=== PATIENT | female | born 1955 | race Caucasian/White ===

== ENCOUNTER 2016-06-19 12:36 | Inpatient (IN) | payer OTHER ==
[~2016-06-19] VITALS: Ht 167.6 cm; Wt 84.6 kg
[~2016-06-19 12:36] MED LIST: ALBU17I; ALEN70 PO; FLOVENT110 MCG/A; LOVA10TA PO
[2016-06-19 12:43] VITALS: BP 113/70; PULSE 70; RESP 17; TEMP 97.7; O2SAT 100
--- NOTE | 2016-06-19 12:57 | PD ---
HPI Chief Complaint: Fall Time Seen by Provider: 12:57 Travel History International Travel<30 days: No Contact w/Intl Traveler<30days: No Traveled to known affect area: No History of Present Illness HPI 61-year-old female with PMH of sciatica presents to the ED by EMS for evaluation after falling from a horse. Patient states that the horse lost his footing then began to perez and she was thrown, falling and landing on her right hip and buttocks. She endorses wearing a helmet. She states that she hit her head but denies losing consciousness. She's not been ambulatory since the accident. On presentation she complains of pain in the right buttock, radiating down the back of the right leg. She endorses "spasm." She denies numbness, tingling, weakness, limitations to range of motion of the leg, incontinence or saddle anesthesia. PFSH Past Medical History Asthma: Yes Cancer: Yes (NOSE TIP SKIN) High Cholesterol: Yes Diabetes: No Diminished Hearing: No Glaucoma: No Hepatitis: No Hiatal Hernia: No Hypertension: No Thyroid Disease: Yes ?: Not Menopausal: Yes : 4 Para: 3 : 1 Past Surgical History Gynecologic Surgery: Yes (LEEP) Social History Alcohol Use: Yes (2/DAY) Tobacco Use: No Allergies-Medications (Allergen,Severity, Reaction): Coded Allergies: No Known Allergies (Verified , 06/19/16) Reported Meds & Prescriptions Reported Meds & Active Scripts Active Reported Fosamax (Alendronate Sodium) 70 Mg Tab 70 Mg PO WEEKLY Proventil Mdi (Albuterol Sulfate) 17 Gm Aero Flovent HFA (Fluticasone Propionate) 110 Mcg Aero Mevacor (Lovastatin) 10 Mg Tab 20 Mg PO HS Review of Systems Except as stated in HPI: all other systems reviewed are Neg Physical Exam Narrative GENERAL: Well-nourished, well-developed white female in no acute distress. Lying on the stretcher with her right hand under her buttocks. SKIN: Warm and dry. Thorough evaluation reveals no edema, ecchymosis, abrasion , or laceration of the skin. HEAD: Normocephalic. Atraumatic. No raccoon eyes or casillas sign. No tenderness to palpation of the skull. No bony step-offs. No malocclusion of the teeth. EYES: No scleral icterus. No injection or drainage. PERRLA. EOMI. ENT: Pearly enriquez tympanic membrane is bilaterally. Nasal mucosa is moist. Oropharynx without erythema, edema or exudate. NECK: Supple, trachea midline. No JVD or lymphadenopathy. No midline tenderness to palpation. Patient retains full, active, painless range of motion of the neck. CARDIOVASCULAR: Regular rate and rhythm without murmurs, gallops, or rubs. 2+ DP and radial pulses bilaterally. RESPIRATORY: Breath sounds clear and equal bilaterally. No accessory muscle use. GASTROINTESTINAL: Abdomen soft, non-tender, nondistended. + Bowel sounds MUSCULOSKELETAL: No cyanosis, or edema. No TTP of the right buttock, groin or thigh. Patient is able to flex the hip, though this elicits pain. No other tenderness to palpation or limitations to range of motion of the joints of the upper and lower extremities bilaterally. NEUROLOGICAL: Awake and alert. Cranial nerves II through XII intact. Motor and sensory grossly within normal limits. Mildly diminished strength of flexion of the right hip. All other muscle strength 5/5. Normal speech. BACK: Nontender without obvious deformity. No CVA tenderness. No midline tenderness. Data Data Last Documented VS Vital Signs Date Time Temp Pulse Resp B/P Pulse Ox O2 Delivery O2 Flow Rate FiO2 06/19/16 14:54 64 18 125/66 97 Room Air 06/19/16 12:[address] Lumb Spine W/O Contrast (06/19/16 13:07) Morphine Inj (Morphine Inj) (06/19/16 13:15) Orphenadrine Inj (Norflex Inj) (06/19/16 13:30) Ct Pelvis W/O Iv Contrast (06/19/16 ) Complete Blood Count With Diff (06/19/16 13:54) Comprehensive Metabolic Panel (06/19/16 13:54) Urinalysis - C+S If Indicated (06/19/16 13:54) Urinary Catheter Insert/Apply (06/19/16 13:54) ^ Insert Iv (06/19/16 13:54) Sodium Chlor 0.9% 1000 Ml Inj (Ns 1000 M (06/19/16 14:00) Femur, One View (06/19/16 ) ^ Insert Iv (06/19/16 14:13) Ct Brain W/O Iv Contrast(Rout) (06/19/16 14:48) Ct Cerv Spine W/O Contrast (06/19/16 14:48) Type And Screen (06/19/16 14:48) Admit Order (Ed Use Only) (06/19/16 14:52) Labs Laboratory Tests Test 06/19/16 14:20 White Blood Count 19.3 TH/MM3 Red Blood Count 4.26 MIL/MM3 Hemoglobin 13.4 GM/DL Hematocrit 39.6 % Mean Corpuscular Volume 92.9 FL Mean Corpuscular Hemoglobin 31.5 PG Mean Corpuscular Hemoglobin 33.9 % Concent Red Cell Distribution Width 13.0 % Platelet Count 278 TH/MM3 Mean Platelet Volume 7.7 FL Neutrophils (%) (Auto) 89.5 % Lymphocytes (%) (Auto) 4.6 % Monocytes (%) (Auto) 5.3 % Eosinophils (%) (Auto) 0.3 % Basophils (%) (Auto) 0.3 % Neutrophils # (Auto) 17.1 TH/MM3 Lymphocytes # (Auto) 0.9 TH/MM3 Monocytes # (Auto) 1.0 TH/MM3 Eosinophils # (Auto) 0.1 TH/MM3 Basophils # (Auto) 0.1 TH/MM3 CBC Comment DIFF FINAL Differential Comment Sodium Level 141 MEQ/L Potassium Level 3.3 MEQ/L Chloride Level 106 MEQ/L Carbon Dioxide Level 25.0 MEQ/L Anion Gap 10 MEQ/L Blood Urea Nitrogen 18 MG/DL Creatinine 0.81 MG/DL Estimat Glomerular Filtration 72 ML/MIN Rate Random Glucose 105 MG/DL Calcium Level 8.9 MG/DL Total Bilirubin 0.4 MG/DL Aspartate Amino Transf 31 U/L (AST/SGOT) Alanine Aminotransferase 38 U/L (ALT/SGPT) Alkaline Phosphatase 68 U/L Total Protein 6.8 GM/DL Albumin 3.4 GM/DL [facility] Medical Decision Making Medical Screen Exam Complete: Yes Emergency Medical Condition: Yes Differential Diagnosis Musculoskeletal pain versus fracture versus dislocation versus acute on chronic back pain versus other Narrative Course 61-year-old female with PMH of sciatica presents to the ED by EMS for evaluation after falling from a horse. Patient states that the horse lost his footing then began to perez and she was thrown, falling and landing on her right hip and buttocks. She endorses wearing a helmet. She states that she hit her head but denies losing consciousness. She has not been ambulatory since the accident. On presentation she complains of pain in the right buttock, radiating down the back of the right leg. She endorses "spasm." She denies numbness, tingling, weakness, limitations to range of motion of the leg, incontinence or saddle anesthesia. Vitals reviewed. Physical exam reveals a white female in no acute distress. She is alert, awake, lying flat on her back with her disabled up under her right buttocks. There is no tenderness to palpation of the right buttock, groin or thigh. Patient is able to flex the hip that is also pain. There is mildly diminished strength in flexion of the right hip. All other muscle strength 5/5. Patient was administered IM Norflex and morphine. CT of the pelvis reveals a right sacral fracture S1 through S3, bilateral inferior pubic rami fractures, right superior pubic rami fracture, suspected left superior pubic rami fracture, soft tissue hematoma in the right posterior lateral lower pelvis. CT of the lumbar spine reveals mild disc bulge at L2/L3 and L4/L5. Mild impression on the anterior left thecal sac at L4-L5. CT of the head and neck are pending. CBC, CMP, UA, type and screen ordered and pending. I spoke with Dr. Sinha, on-call trauma surgeon, who recommends transfer to [facility]. Patient will be admitted to Dr. Sinha, please see his notes for disposition. Diagnosis Primary Impression: Multiple pelvic fractures Qualified Code: S32.811A - Multiple closed fractures of pelvis with unstable disruption of pelvic [place], initial encounter Additional Impression: Sacral fracture, closed Qualified Code: S32.10XA - Closed fracture of sacrum, unspecified portion of sacrum, initial encounter Nadira Esquivel Jun 19, 2016 12:57
[2016-06-19] MEDS ORDERED: MORPHINE SULFATE 4 MG/ML INJ IM ONE (13:15)
[2016-06-19] MEDS ORDERED: ORPHENADRINE INJ 60 MG/2 ML AMP IM ONE (13:30)
[2016-06-19] MEDS ORDERED: SODIUM CHLOR 0.9% 1000 ML INJ 1,000 ML IV ONE (14:00)
--- NOTE | 2016-06-19 14:26 | RADHPO ---
EXAM DATE/TIME: 06/19/2016 13:37 [facility] COMPARISON: No previous studies available for comparison. INDICATIONS : Fell form horse, lower back pain. RADIATION DOSE: 40.16 CTDIvol (mGy) MEDICAL HISTORY : None Asthma SURGICAL HISTORY : None. ENCOUNTER: Initial ACUITY: 1 day PAIN SCALE: 5/10 LOCATION: Buttock TECHNIQUE: Volumetric scanning of the lumbar spine was performed. Multiplanar reconstructions in the sagittal, coronal and oblique axial planes were performed. Using automated exposure control and adjustment of the mA and/or kV according to patient size, radiation dose was kept as low as reasonab ly achievable to obtain optimal diagnostic quality images. FINDINGS: VERTEBRAE: There is fracturing of the right superolateral and anterior sacrum. The lumbar verteb ral bodies appear intact. ALIGNMENT: No evidence of subluxation. T12-L1: The thecal sac has a normal diameter. No evidence of disc bulge or protrusion. The neural foramina are patent bilaterally. L1-L2: The thecal sac has a normal diameter. No evidence of disc bulge or protrusion. The neural foramina are patent bilaterally. L2-L3: There is mild diffuse disc bulge. The neural foramina are normal. The facet joints are in tact. L3-L4: There is mild diffuse disc bulge. The neural foramina are normal. There is mild facet hyp ertrophy. L4-L5: There is mild asymmetric disc bulge being worse on the left. There is mild to moderate fac et hypertrophy being worse on the left. These changes cause a mild impression on the thecal sac. Th e neural foramina are normal. L5-S1: The disc space is narrowed. A significant impression on the thecal sac is not seen. The n eural foramina are normal. There is mild facet hypertrophy. CONCLUSION: 1. Acute fracturing of the anterior right lateral aspect of the sacrum. 2. Mild disc bulges at the mid and lower lumbar spine at the L2-L3 through L4-L5 levels. There is a mild impression on the anterior left side of the thecal sac at the L4-L5 level. Marcus Gauthier MD on June 19, 2016 at 14:04 Board Certified Radiologist. This report was verified electronically.
[2016-06-19 14:32] LABS: AUTOMATED NEUTROPHIL # 17.1 TH/MM3 (1.8-7.7); BASOPHIL # 0.1 TH/MM3 (0-0.2); BASOPHIL % 0.3 % (0.0-2.0); EOSINOPHIL # 0.1 TH/MM3 (0-0.4); EOSINOPHIL % 0.3 % (0.0-4.0); HEMATOCRIT 39.6 % (35.0-46.0); LYMPH % 4.6 % (9.0-44.0); LYMPHOCYTE # 0.9 TH/MM3 (1.0-4.8); MEAN CELL VOLUME 92.9 FL (80.0-100.0); MEAN CORPUSCULAR HEMOGLOBIN 31.5 PG (27.0-34.0); MEAN CORPUSCULAR HGB CONC 33.9 % (32.0-36.0); MONO % 5.3 % (0.0-8.0); NEUT % 89.5 % (16.0-70.0); PLATELET COUNT 278 TH/MM3 (150-450); RED BLOOD COUNT 4.26 MIL/MM3 (4.00-5.30); WHITE BLOOD COUNT 19.3 TH/MM3 (4.0-11.0)
--- NOTE | 2016-06-19 14:34 | RADHPO ---
EXAM DATE/TIME: 06/19/2016 14:01 [facility] COMPARISON: No previous studies available for comparison. INDICATIONS : Right leg pain and spasms post fall from a horse. MEDICAL HISTORY : None. SURGICAL HISTORY : None. ENCOUNTER: Initial ACUITY: 1 day PAIN SCORE: 7/10 LOCATION: Right femur. FINDINGS: One view examination of the right femur demonstrates no evidence of fracture or dislocation. There i s some hypertrophic change adjacent to the greater trochanter. Bony mineralization is normal. The so ft tissue structures are intact. CONCLUSION: No acute disease. Marcus Gauthier MD on June 19, 2016 at 14:32 Board Certified Radiologist. This report was verified electronically.
--- NOTE | 2016-06-19 14:36 | RADHPO ---
EXAM DATE/TIME: 06/19/2016 13:37 [facility] COMPARISON: No previous studies available for comparison. INDICATIONS : Fell from horse, hip pain. ORAL CONTRAST: No oral contrast ingested. RADIATION DOSE: 30.90 CTDIvol (mGy) MEDICAL HISTORY : Asthma SURGICAL HISTORY : None. ENCOUNTER: Initial ACUITY: 1 day PAIN SCALE: 5/10 LOCATION: Pelvis TECHNIQUE: Volumetric scanning of the pelvis was performed. Using automated exposure control and adjustment of the mA and/or kV according to patient size, radiation dose was kept as low as reasonably achievable t o obtain optimal diagnostic quality images. FINDINGS: There is fracturing of the right sacrum. The anterior component appears to involve the S1 and S2 lev els. There is a more posterior component involving the S3 level. There is fracturing of the right s uperior pubic rami and inferior pubic rami bilaterally. The hip joints are normally aligned. There is a hematoma seen at the posterior right lateral aspect of the pelvis. The pelvic structures appear otherwise intact. There is some degenerative change in the lower lumbar spine. CONCLUSION: 1. Fracturing of the right side of the sacrum involving the S1 through S3 levels. 2. Fracturing of the inferior pubic rami bilaterally and the right superior pubic rami. A superior left pubic rami fracture is not clearly seen. However, an occult fracture involving this structure n eeds to be at least suspected, given the other fractures. 3. Soft tissue hematoma seen at the posterior right lateral lower pelvis from the trauma. Marcus Gauthier MD on June 19, 2016 at 14:11 Board Certified Radiologist. This report was verified electronically.
[2016-06-19 14:40] LABS: HEMO FLAGS DIFF FINAL
[2016-06-19 14:45] LABS: CHLORIDE 106 MEQ/L (98-107); POTASSIUM 3.3 MEQ/L (3.5-5.1); SODIUM (NA) 141 MEQ/L (136-145)
[2016-06-19 14:50] LABS: ANION GAP 10 MEQ/L (5-15); BLOOD UREA NITROGEN 18 MG/DL (7-18)
[2016-06-19 14:53] LABS: ALT (GPT) 38 U/L (10-53); AST (GOT) 31 U/L (15-37); GLOMERULAR FILTRATION RATE 72 ML/MIN (>89)
[2016-06-19 14:54] VITALS: BP 125/66; PULSE 64; RESP 18; O2SAT 97
[2016-06-19 14:55] LABS: TOTAL BILIRUBIN ADULT 0.4 MG/DL (0.2-1.0)
[2016-06-19 14:56] LABS: ALKALINE PHOSPHATASE 68 U/L (45-117)
[2016-06-19 15:09] LABS: BLOOD, URINE NEG (NEG); GLUCOSE,URINE NEG (NEG); KETONE, URINE 15 mg/dL (NEG); NITRITE,URINE NEG (NEG); PH, URINE 8.5 (5.0-8.5)
[2016-06-19 15:16] LABS: METHOD OF COLLECTION CATH; URINE COLOR YELLOW (YELLW/STRAW)
[2016-06-19 15:17] LABS: COMMENT (UR) CULT NOT INDICATED; CULTURE IF INDICATED CULT NOT INDICATED; WBC, URINE 0-2 /hpf (0-5)
--- NOTE | 2016-06-19 16:01 | RADHPO ---
EXAM DATE/TIME: 06/19/2016 15:29 [facility] COMPARISON: No previous studies available for comparison. INDICATIONS : Cephalgia, fall from horse RADIATION DOSE: 68.07 CTDIvol (mGy) MEDICAL HISTORY : Asthma SURGICAL HISTORY : None. ENCOUNTER: Initial ACUITY: 1 day PAIN SCALE: 2/10 LOCATION: cranial TECHNIQUE: Multiple contiguous axial images were obtained of the head. Using automated exposure control and adj ustment of the mA and/or kV according to patient size, radiation dose was kept as low as reasonably a chievable to obtain optimal diagnostic quality images. FINDINGS: CEREBRUM: The ventricles are normal for age. No evidence of midline shift, mass lesion, hemorrhage or acute in farction. No extra-axial fluid collections are seen. POSTERIOR FOSSA: The cerebellum and brainstem are intact. The 4th ventricle is midline. The cerebellopontine angle i s unremarkable. EXTRACRANIAL: There is mucoperiosteal thickening of the visualized sinuses. Mastoid air cells are clear. SKULL: The calvaria is intact. No evidence of skull fracture. CONCLUSION: No bleed or other acute intracranial abnormality. Pansinusitis. Marcus Barreto MD on June 19, 2016 at 15:58 Board Certified Radiologist. This report was verified electronically.
--- NOTE | 2016-06-19 16:13 | RADHPO ---
EXAM DATE/TIME: 06/19/2016 15:29 [facility] COMPARISON: No previous studies available for comparison. INDICATIONS : Trauma TECHNIQUE: Volumetric scanning of the cervical spine was performed. Multiplanar reconstructions in the sagittal, coronal and oblique axial planes were performed. Using automated exposure control and adjustment o f the mA and/or kV according to patient size, radiation dose was kept as low as reasonably achievable to obtain optimal diagnostic quality images. FINDINGS: No fracture or acute subluxation seen in the cervical spine. There are couple millimeters of degenera tive anterolisthesis at C4/C5 and degenerative retrolisthesis at C5/C6 and C6/C7. Moderate to severe disc space narrowing with uncovertebral and facet osteoarthritis seen at C5/C6 and C6/C7. Vertebral bodies have normal height. CONCLUSION: Degenerative changes as above. No fracture or subluxation of the cervical spine. Marcus Barreto MD on June 19, 2016 at 16:09 Board Certified Radiologist. This report was verified electronically.
[2016-06-19] MEDS ORDERED: SODIUM CHLOR 0.9% 1000 ML INJ 1,000 ML IV SCH (16:28)
[2016-06-19 16:30] VITALS: BP 120/62; PULSE 69; RESP 16; O2SAT 98
[2016-06-19] MEDS ORDERED: ONDANSETRON HCL 4 MG/2 ML VIAL IV PUSH ONE (16:30)
[2016-06-19] MEDS ORDERED: MORPHINE SULFATE 4 MG/ML INJ IV PUSH ONE (16:30)
[2016-06-19 19:00] VITALS: BP 107/53; PULSE 72; RESP 18; TEMP 97.6; O2SAT 92
[2016-06-19] MEDS: MORPHINE SULFATE 4 MG/ML INJ IV PRN ×2 (19:40→21:49)
[2016-06-19] MEDS ORDERED: SODIUM CHLORIDE 0.9% FLUSH 5 ML FLUSH IVF PRN (21:30)
[2016-06-19] MEDS ORDERED: ONDANSETRON HCL 4 MG/2 ML VIAL IV PRN (21:30)
[2016-06-19] MEDS ORDERED: ENALAPRILAT 1.25 MG/ML VIAL IV PRN (21:30)
[2016-06-19] MEDS ORDERED: ACETAMINOPHEN 325 MG TAB PO PRN (21:30)
[2016-06-20] VITALS (8 sets, daily range): BP systolic 95–111; BP diastolic 55–66; PULSE 65–72; RESP 16–20; TEMP 97.8–99.2; O2SAT 92–97
[2016-06-20] MEDS: CYCLOBENZAPRINE HCL 10 MG TAB PO PRN (01:44)
[2016-06-20] MEDS: SODIUM CHLOR 0.9% 1000 ML INJ 1,000 ML IV SCH ×2 (01:45→08:00)
[2016-06-20] MEDS: MORPHINE SULFATE 4 MG/ML INJ IV PRN ×4 (03:55→20:44)
[2016-06-20 07:09] LABS: AUTOMATED NEUTROPHIL # 6.4 TH/MM3 (1.8-7.7); BASOPHIL % 0.5 % (0.0-2.0); EOSINOPHIL # 0.1 TH/MM3 (0-0.4); EOSINOPHIL % 0.7 % (0.0-4.0); HEMATOCRIT 35.3 % (35.0-46.0); HEMO FLAGS DIFF FINAL; LYMPH % 15.2 % (9.0-44.0); LYMPHOCYTE # 1.4 TH/MM3 (1.0-4.8); MEAN CELL VOLUME 94.8 FL (80.0-100.0); MEAN CORPUSCULAR HEMOGLOBIN 32.5 PG (27.0-34.0); MEAN CORPUSCULAR HGB CONC 34.3 % (32.0-36.0); MONO % 11.3 % (0.0-8.0); NEUT % 72.3 % (16.0-70.0); PLATELET COUNT 224 TH/MM3 (150-450); RED BLOOD COUNT 3.72 MIL/MM3 (4.00-5.30); RED CELL DISTRIBUTION WIDTH 13.6 % (11.6-17.2); WHITE BLOOD COUNT 8.9 TH/MM3 (4.0-11.0)
[2016-06-20 07:32] LABS: BICARBONATE 26.6 MEQ/L (21.0-32.0); POTASSIUM 4.1 MEQ/L (3.5-5.1)
[2016-06-20] MEDS: DOCUSATE SODIUM 100 MG CAP PO SCH (09:28)
--- NOTE | 2016-06-20 09:43 | PD.ORT.PN ---
Subjective Subjective Remarks s/p fall from horse. reports pelvic pain. no other complaints. Objective Vitals Vital Signs Date Time Temp Pulse Resp B/P Pulse Ox O2 Delivery O2 Flow Rate FiO2 06/20/16 08:43 97 21 06/20/16 04:00 98.7 66 16 109/59 92 06/20/16 03:59 92 21 06/20/16 00:00 97.8 72 16 111/55 97 06/19/16 19:00 97.6 72 18 107/53 92 06/19/16 16:30 69 16 120/62 98 06/19/16 14:54 64 18 125/66 97 Room Air 06/19/16 14:32 18 06/19/16 12:43 97.7 70 17 113/70 100 I/O 06/19/16 06/19/16 06/19/16 06/20/16 06/20/16 06/20/16 07:00 15:00 23:00 07:00 15:00 23:00 Intake Total 1720 ml 240 ml Output Total 1350 ml 250 ml Balance 370 ml -10 ml Intake Oral 720 ml 240 ml IV Total 1000 ml Output Urine Total 1350 ml 250 ml # Bowel Movements 0 0 Result Diagram: 06/20/16 0616 06/20/16 0616 Imaging Last [address] 06/19/16 1448 Signed Impressions: Service Date/Time: Sunday, June 19, 2016 15:29 - CONCLUSION: No bleed or other acute intracranial abnormality. Pansinusitis. Marcus Barreto MD Cervical Spine CT 06/19/16 1448 Signed Impressions: Service Date/Time: Sunday, June 19, 2016 15:29 - CONCLUSION: Degenerative changes as above. No fracture or subluxation of the cervical spine. Marcus Barreto MD Lumbar Spine CT 06/19/16 1301 Signed Impressions: Service Date/Time: Sunday, June 19, 2016 13:37 - CONCLUSION: 1. Acute fracturing of the anterior right lateral aspect of the sacrum. 2. Mild disc bulges at the mid and lower lumbar spine at the L2-L3 through L4-L5 levels. There is a mild impression on the anterior left side of the thecal sac at the L4-L5 level. Marcus Gauthier MD Objective Remarks BUE: full motion. no pain. nvi BLE: full motion. ppain in pelvis. NVI distlaly. no bruising Assessment & Plan Assessment and Plan 1) Right Sacral Fx and multiples pubic rami fxs - nonop -nonop -50%WB RLE -WBAT LLE -work with therapy -when ambulating safely and pain controlled will work towards DC home -f/u Caden or NICOL in 2 weeks Danny Kunz Jun 20, 2016 09:43
[2016-06-20] MEDS ORDERED: HYDR-3288 PO (09:46)
[2016-06-20] MEDS ORDERED: XARE10TA PO (09:46)
[2016-06-20] MEDS ORDERED: WALKER/ADULT/FO1 MIS (09:46)
[2016-06-20] MEDS ORDERED: ACETAMINOPHEN/HYDROcodone 325 MG/5 MG TAB PO PRN (10:15)
[2016-06-20] MEDS: ACETAMINOPHEN/HYDROcodone 325 MG/7.5 MG TAB PO PRN ×3 (11:09→20:29)
--- NOTE | 2016-06-20 13:45 | HHI.PR ---
Subjective Subjective Notes PTD: 1 Patient out of bed and sitting in a recliner chair. Patient states that the pain pills have been working to reduce her pain. Objective Vitals/I&O Vital Signs Date Time Temp Pulse Resp B/P Pulse Ox O2 Delivery O2 Flow Rate FiO2 06/20/16 08:43 97 21 06/20/16 08:00 98.7 68 18 104/66 06/19/16 14:54 Room Air Labs Laboratory Tests Test 06/19/16 06/19/16 06/19/16 06/20/16 14:20 14:50 15:00 06:16 White Blood Count 19.3 8.9 Red Blood Count 4.26 3.72 Hemoglobin 13.4 12.1 Hematocrit 39.6 35.3 Mean Corpuscular Volume 92.9 94.8 Mean Corpuscular Hemoglobin 31.5 32.5 Mean Corpuscular Hemoglobin 33.9 34.3 Concent Red Cell Distribution Width 13.0 13.6 Platelet Count 278 224 Mean Platelet Volume 7.7 7.9 Neutrophils (%) (Auto) 89.5 72.3 Lymphocytes (%) (Auto) 4.6 15.2 Monocytes (%) (Auto) 5.3 11.3 Eosinophils (%) (Auto) 0.3 0.7 Basophils (%) (Auto) 0.3 0.5 Neutrophils # (Auto) 17.1 6.4 Lymphocytes # (Auto) 0.9 1.4 Monocytes # (Auto) 1.0 1.0 Eosinophils # (Auto) 0.1 0.1 Basophils # (Auto) 0.1 0.0 CBC Comment DIFF FINAL DIFF FINAL Differential Comment Sodium Level 141 140 Potassium Level 3.3 4.1 Chloride Level 106 105 Carbon Dioxide Level 25.0 26.6 Anion Gap 10 8 Blood Urea Nitrogen 18 12 Creatinine 0.81 0.70 Estimat Glomerular Filtration 72 85 Rate Random Glucose 105 112 Calcium Level 8.9 7.7 Total Bilirubin 0.4 Aspartate Amino Transf 31 (AST/SGOT) Alanine Aminotransferase 38 (ALT/SGPT) Alkaline Phosphatase 68 Total Protein 6.8 Albumin 3.4 Urine Collection Type CATH Urine Color YELLOW Urine Turbidity CLEAR Urine pH 8.5 Urine Specific [place] 1.022 Urine Protein 30 Urine Glucose (UA) NEG Urine Ketones 15 Urine Occult Blood NEG Urine Nitrite NEG Urine Bilirubin NEG Urine Leukocyte Esterase NEG Urine WBC 0-2 Urine Amorphous Sediment LARGE Microscopic Urinalysis Comment CULT NOT INDICATED Blood Type A NEGATIVE Antibody Screen NEGATIVE Blood Bank Comment Radiology Last Impressions Head CT 06/19/16 1448 Signed Impressions: Service Date/Time: Sunday, June 19, 2016 15:29 - CONCLUSION: No bleed or other acute intracranial abnormality. Pansinusitis. Marcus Barreto MD Cervical Spine CT 06/19/16 1448 Signed Impressions: Service Date/Time: Sunday, June 19, 2016 15:29 - CONCLUSION: Degenerative changes as above. No fracture or subluxation of the cervical spine. Marcus Barreto MD Lumbar Spine CT 06/19/16 1307 Signed Impressions: Service Date/Time: Sunday, June 19, 2016 13:37 - CONCLUSION: 1. Acute fracturing of the anterior right lateral aspect of the sacrum. 2. Mild disc bulges at the mid and lower lumbar spine at the L2-L3 through L4-L5 levels. There is a mild impression on the anterior left side of the thecal sac at the L4-L5 level. Marcus Gauthier MD Pelvis CT 06/19/16 0000 Signed Impressions: Service Date/Time: Sunday, June 19, 2016 13:37 - CONCLUSION: 1. Fracturing of the right side of the sacrum involving the S1 through S3 levels. 2. Fracturing of the inferior pubic rami bilaterally and the right superior pubic rami. A superior left pubic rami fracture is not clearly seen. However, an occult fracture involving this structure needs to be at least suspected, given the other fractures. 3. Soft tissue hematoma seen at the posterior right lateral lower pelvis from the trauma. Marcus Gauthier MD Femur X-Ray 06/19/16 0000 Signed Impressions: Service Date/Time: Sunday, June 19, 2016 14:01 - CONCLUSION: No acute disease. Marcus Gauthier MD Narrative Exam GENERAL: This is a 61-year-old female out of bed and sitting in a recliner chair. SKIN: Warm and dry. HEAD: Atraumatic. Normocephalic. EYES: PERRLA ENT: No nasal bleeding or discharge. Mucous membranes pink and moist. NECK: Trachea midline. No JVD. CARDIOVASCULAR: Regular rate and rhythm. RESPIRATORY: No accessory muscle use. Lungs are clear to auscultation. Breath sounds equal bilaterally. No distress or dyspnea. GASTROINTESTINAL: BS + x 4 quads. Abdomen soft, non-tender, nondistended. MUSCULOSKELETAL: Extremities without cyanosis, or edema. + peripheral pulses x 4 extremities. Warm with good capillary refill and sensation. MAEW. NEUROLOGICAL: Awake and alert. Normal speech and pattern. A/P Problem List: (1) Sacral fracture, closed (2) Multiple pelvic fractures Assessment and Plan [place]: This is a 61-year-old female who was bucked off horse. She landed on her right hip and buttocks. She states that she hit her head, but not lose consciousness. She originally complained of pain in the right buttocks that radiates down her leg. She was ambulatory at the scene. She was a transfer from [facility] INJURIES: Mild disk bulges at L2-L3 thru L4-L5 levels Fx of anterior RIGHT side of the sacrum (Involving S1-S3) BILATERAL inferior pubic rami fx RIGHT superior pubic rami fx Soft tissue hematoma - posterior RIGHT lower pelvis Consults: Orthopedics Diet: Regular diet. Tolerating po diet. Encourage good po intake with each meal. Pulmonary: Encourage good pulmonary toileting. IS at bedside and pt encouraged to use. Rationale for use explained to patient, and verbalized understanding. PAIN Management: [place] po. Morphine IV for breakthrough pain. Flexeril po. Activity: OOB. PT and OT ordered. (50% WB RLE; NWB LLE) GI prophylaxis: Pepcid hs. Bowel regimen: Colace and MOM. Lactulose. LBM: DVT prophylaxis: Mechanical VTE with SCDs. Chemical management TBD DC Planning: Case management consulted for assistance with final discharge disposition. She can be discharged home as soon as she has been working with physical therapy, and her pain is controlled. Hopeful for discharge tomorrow. Emotional support provided to patient and family at bedside and plan of care discussed. Discussed with RN at bedside . Patient is hemodynamically stable and being managed on the med/surg floor. Problem Qualifiers (1) Sacral fracture, closed: Qualified Code: S32.10XA - Closed fracture of sacrum, unspecified portion of sacrum, initial encounter (2) Multiple pelvic fractures: Qualified Code: S32.811A - Multiple closed fractures of pelvis with unstable disruption of pelvic [place], initial encounter Claire Byrne Jun 20, 2016 13:45
[2016-06-20] MEDS: LACTULOSE SYRUP 20 GM/30 ML CUP PO SCH (15:55)
[2016-06-20] MEDS ORDERED: MAGNESIUM HYDROXIDE SUSP 30 ML CUP PO SCH (21:00)
[2016-06-20] MEDS: FAMOTIDINE 20 MG TAB PO SCH (21:00)
[2016-06-21] VITALS (8 sets, daily range): BP systolic 105–125; BP diastolic 52–70; PULSE 20–71; RESP 16–20; TEMP 97.8–100; O2SAT 90–97
[2016-06-21] MEDS: ACETAMINOPHEN/HYDROcodone 325 MG/7.5 MG TAB PO PRN ×6 (01:44→23:22)
--- NOTE | 2016-06-21 06:48 | HHI.FF ---
Face to Face Verification Diagnosis: (1) Osteoarthritis of knee (2) Multiple pelvic fractures (3) Sacral fracture, closed Physical Therapy Order: Evaluate and Treat, Improve ambulation, Strength and gait training Home Health Nursing Order: Medical education Signs/symptoms of disease process Medication education-adverse effect Nursing assessment with vital signs I have seen patient Brenda Joseph on 06/21/16. My clinical findings support the need for the requested home health care services because: Ltd mobility - disease progression Deconditioned w/ increased weakness Limited ability to care for self High risk of falls I certify that my clinical findings support that this patient is homebound because: Post-op weakness Unsteady gait/balance Unsafe to leave home unassisted Unable to use public transportation Claire Byrne Jun 21, 2016 06:48
[2016-06-21] MEDS ORDERED: MISC-163 (06:49)
[2016-06-21] MEDS ORDERED: DOCU1CAP39 PO (06:50)
[2016-06-21] MEDS ORDERED: MILKSUS PO (06:50)
[2016-06-21] MEDS ORDERED: BISACODYL 10 MG SUPP RECTAL ONE (07:00)
[2016-06-21] MEDS ORDERED: BISACODYL EC 5 MG TABEC PO ONE (07:00)
--- NOTE | 2016-06-21 07:11 | PD.ORT.PN ---
Subjective Subjective Remarks Pain controlled. Still having difficulty ambulating due to pain of pelvis Objective Vitals Vital Signs Date Time Temp Pulse Resp B/P Pulse Ox O2 Delivery O2 Flow Rate FiO2 06/21/16 00:00 99.2 67 20 106/52 93 06/20/16 20:00 99.2 67 20 100/55 93 06/20/16 19:50 21.00 06/20/16 16:00 99.0 66 18 106/60 95 06/20/16 12:00 99.0 65 18 95/59 93 06/20/16 08:43 97 21 06/20/16 08:00 98.7 68 18 104/66 92 Result Diagram: 06/20/16 0616 06/20/16 0616 Imaging Last [address] 06/19/16 1448 Signed Impressions: Service Date/Time: Sunday, June 19, 2016 15:29 - CONCLUSION: No bleed or other acute intracranial abnormality. Pansinusitis. Marcus Barreto MD Cervical Spine CT 06/19/16 1448 Signed Impressions: Service Date/Time: Sunday, June 19, 2016 15:29 - CONCLUSION: Degenerative changes as above. No fracture or subluxation of the cervical spine. Marcus Barreto MD Lumbar Spine CT 06/19/16 1307 Signed Impressions: Service Date/Time: Sunday, June 19, 2016 13:37 - CONCLUSION: 1. Acute fracturing of the anterior right lateral aspect of the sacrum. 2. Mild disc bulges at the mid and lower lumbar spine at the L2-L3 through L4-L5 levels. There is a mild impression on the anterior left side of the thecal sac at the L4-L5 level. Marcus Gauthier MD Objective Remarks BUE: full motion. no pain. nvi BLE: full motion. pain in pelvis. NVI distlaly. no bruising Assessment & Plan Assessment and Plan 1) Right Sacral Fx and multiples pubic rami fxs - nonop -nonop -50%WB RLE -WBAT LLE -Walker training and evaluation by PT for home discharge -when ambulating safely and pain controlled will work towards DC home- -f/u Caden or NICOL in 2 weeks DOMENIC JOHNSON PA-C Jun 21, 2016 07:11
--- NOTE | 2016-06-21 08:28 | MB ---
cc: GALDINO NEGRETE TRENTON Y. PA DATE OF CONSULTATION: 06/20/2016 REASON FOR CONSULTATION/CHIEF COMPLAINT: Pelvic pain, status post fall from horse. HISTORY OF PRESENT ILLNESS: The patient is a 61-year-old white female who presented today after suffering a fall from a horse on 06/19/2016. She states she was riding a horse and the horse lost its footing and bucked. She states it threw her from the horse. She was wearing a helmet. She denies loss of consciousness. She reports pelvic pain and pain in the posterior right hip. She reports she has been unable to bear weight since the incident. She was brought to [facility] and admitted for evaluation. She denies any numbness, tingling or radiation of symptoms. She reports that she has no pain in any of her upper extremities or anywhere else in her lower extremities other than her pelvis. She states that it is improving. She states she has a history of sciatica. PAST MEDICAL HISTORY: Past medical history positive for: 1. Asthma. 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 3. High cholesterol. 4. Thyroid disease. 5. Menopause. PAST SURGICAL HISTORY: Has had a gynecologic procedure the past. SOCIAL HISTORY: Occasionally drinks alcohol, denies tobacco use. ALLERGIES TO MEDICATIONS: NO KNOWN ALLERGIES. REPORTED MEDICATIONS: 1. Fosamax. 2. Albuterol. 3. Flovent. 4. Lovastatin. REVIEW OF SYSTEMS: Negative except for what is mentioned in the history of present illness. A complete ten-point review of systems was performed. PHYSICAL EXAMINATION: GENERAL: On general physical exam, a well-developed, well-nourished 61-year-old white female in a minimal amount of distress with slight pain with movement. EYES: Extraocular muscles intact. Pupils equal, round and reactive to light. EARS: Hearing intact bilaterally. NECK: The neck is supple. No evidence of lymphadenopathy. LUNGS: No use of accessory muscles and no audible wheezes noted at bedside. HEART: No grade 4 murmur present. ABDOMEN: Abdomen soft and nontender. MUSCULOSKELETAL: Pelvic pain with motion of the hips. Full sensation distally bilaterally. Good capillary refill. No pain in the knees, ankles or toes with movement. Bilateral upper extremities full motion of the shoulders, elbows, wrist and fingers and no pain. Full sensation distally. IMAGING STUDIES: CT scan was reviewed from [facility] which show multiple nondisplaced pubic ramus fractures and a nondisplaced right sacral fracture. ASSESSMENT: 1. Right sacral fracture. 2. Multiple pubic ramus fractures. PLAN: 1. I had a discussion with the patient regarding the treatment options. At this point, the fractures are well-aligned. I think they will do well with conservative management. We will plan on nonoperative management. 2. She is allowed to 50% weight-bear on the right leg and full weight-bear on the left leg. 3. She will need to work with physical therapy on ambulating with a walker. 4. I advised her that as soon as she is up and ambulating safely with therapy and her pain is controlled, she is fit for discharge home. 5. We will supply her with pain medications for discharge home. 6. She will followup in our office in two weeks for repeat x-rays of her pelvis and evaluation. I advised her that if the sacral fracture happens to displace, that it could require surgical intervention; however, this is unlikely. 7. She will partial weight-bear on the right, full weight-bear on the left and followup with us in the office. She agreed and understood and agreed with the plan. Thank you for this consultation. We will follow along for as long as she is admitted. The above dictation and care plan was reviewed with Dr. Negrete and he does agree. She will follow up in two weeks with Dr. Negrete or his P.A. Danny LEONARD/PERC /9:09 AM /7:26 AM
[2016-06-21] MEDS: DOCUSATE SODIUM 100 MG CAP PO SCH ×3 (09:00→19:34)
[2016-06-21] MEDS: ENOXAPARIN SODIUM 40 MG/0.4 ML SYRINGE SQ SCH (09:14)
[2016-06-21] MEDS: LACTULOSE SYRUP 20 GM/30 ML CUP PO SCH (09:14)
--- NOTE | 2016-06-21 16:44 | HHI.PR ---
Subjective Subjective Notes PTD: 2 Patient is still complaining of dizziness, only when she gets to a standing position. She is still having difficulty walking, only walking a few steps at a time. Objective Vitals/I&O Vital Signs Date Time Temp Pulse Resp B/P Pulse Ox O2 Delivery O2 Flow Rate FiO2 06/21/16 12:00 98.9 68 16 107/66 97 06/21/16 10:31 Nasal Cannula 1.00 06/20/16 08:43 21 Labs Laboratory Tests Test 06/19/16 06/19/16 06/19/16 06/20/16 14:20 14:50 15:00 06:16 Total Bilirubin 0.4 MG/DL Aspartate Amino Transf 31 U/L (AST/SGOT) Alanine Aminotransferase 38 U/L (ALT/SGPT) Alkaline Phosphatase 68 U/L Total Protein 6.8 GM/DL Albumin 3.4 GM/DL Urine Collection Type CATH Urine Color YELLOW Urine Turbidity CLEAR Urine pH 8.5 Urine Specific [place] 1.022 Urine Protein 30 mg/dL Urine Glucose (UA) NEG mg/dL Urine Ketones 15 mg/dL Urine Occult Blood NEG Urine Nitrite NEG Urine Bilirubin NEG Urine Leukocyte Esterase NEG Urine WBC 0-2 /hpf Urine Amorphous Sediment LARGE Microscopic Urinalysis Comment CULT NOT INDICATED Blood Type A NEGATIVE Antibody Screen NEGATIVE Blood Bank Comment White Blood Count 8.9 TH/MM3 Red Blood Count 3.72 MIL/MM3 Hemoglobin 12.1 GM/DL Hematocrit 35.3 % Mean Corpuscular Volume 94.8 FL Mean Corpuscular Hemoglobin 32.5 PG Mean Corpuscular Hemoglobin 34.3 % Concent Red Cell Distribution Width 13.6 % Platelet Count 224 TH/MM3 Mean Platelet Volume 7.9 FL Neutrophils (%) (Auto) 72.3 % Lymphocytes (%) (Auto) 15.2 % Monocytes (%) (Auto) 11.3 % Eosinophils (%) (Auto) 0.7 % Basophils (%) (Auto) 0.5 % Neutrophils # (Auto) 6.4 TH/MM3 Lymphocytes # (Auto) 1.4 TH/MM3 Monocytes # (Auto) 1.0 TH/MM3 Eosinophils # (Auto) 0.1 TH/MM3 Basophils # (Auto) 0.0 TH/MM3 CBC Comment DIFF FINAL Differential Comment Sodium Level 140 MEQ/L Potassium Level 4.1 MEQ/L Chloride Level 105 MEQ/L Carbon Dioxide Level 26.6 MEQ/L Anion Gap 8 MEQ/L Blood Urea Nitrogen 12 MG/DL Creatinine 0.70 MG/DL Estimat Glomerular Filtration 85 ML/MIN Rate Random Glucose 112 MG/DL Calcium Level 7.7 MG/DL Radiology Last Impressions Head CT 06/19/16 1448 Signed Impressions: Service Date/Time: Sunday, June 19, 2016 15:29 - CONCLUSION: No bleed or other acute intracranial abnormality. Pansinusitis. Marcus Barreto MD Cervical Spine CT 06/19/16 1448 Signed Impressions: Service Date/Time: Sunday, June 19, 2016 15:29 - CONCLUSION: Degenerative changes as above. No fracture or subluxation of the cervical spine. Marcus Barreto MD Lumbar Spine CT 06/19/16 1307 Signed Impressions: Service Date/Time: Sunday, June 19, 2016 13:37 - CONCLUSION: 1. Acute fracturing of the anterior right lateral aspect of the sacrum. 2. Mild disc bulges at the mid and lower lumbar spine at the L2-L3 through L4-L5 levels. There is a mild impression on the anterior left side of the thecal sac at the L4-L5 level. Marcus Gauthier MD Pelvis CT 06/19/16 0000 Signed Impressions: Service Date/Time: Sunday, June 19, 2016 13:37 - CONCLUSION: 1. Fracturing of the right side of the sacrum involving the S1 through S3 levels. 2. Fracturing of the inferior pubic rami bilaterally and the right superior pubic rami. A superior left pubic rami fracture is not clearly seen. However, an occult fracture involving this structure needs to be at least suspected, given the other fractures. 3. Soft tissue hematoma seen at the posterior right lateral lower pelvis from the trauma. Marcus Gauthier MD Femur X-Ray 06/19/16 0000 Signed Impressions: Service Date/Time: Sunday, June 19, 2016 14:01 - CONCLUSION: No acute disease. Marcus Gauthier MD Narrative Exam GENERAL: This is a 61-year-old female sitting in a recliner chair. SKIN: Warm and dry. HEAD: Atraumatic. Normocephalic. EYES: PERRLA ENT: No nasal bleeding or discharge. Mucous membranes pink and moist. NECK: Trachea midline. No JVD. CARDIOVASCULAR: Regular rate and rhythm. RESPIRATORY: No accessory muscle use. Lungs are clear to auscultation. Breath sounds equal bilaterally. No distress or dyspnea. GASTROINTESTINAL: BS + x 4 quads. Abdomen soft, non-tender, nondistended. MUSCULOSKELETAL: Extremities without cyanosis, or edema. + peripheral pulses x 4 extremities. Warm with good capillary refill and sensation. MAEW. NEUROLOGICAL: Awake and alert. Normal speech and pattern. A/P Problem List: (1) Sacral fracture, closed (2) Multiple pelvic fractures Assessment and Plan [place] RESERVATION: This is a 61-year-old female who was bucked off horse. She landed on her right hip and buttocks. She states that she hit her head, but not lose consciousness. She originally complained of pain in the right buttocks that radiates down her leg. She was ambulatory at the scene. She was a transfer from [facility] INJURIES: Mild disk bulges at L2-L3 thru L4-L5 levels Fx of anterior RIGHT side of the sacrum (Involving S1-S3) BILATERAL inferior pubic rami fx RIGHT superior pubic rami fx Soft tissue hematoma - posterior RIGHT lower pelvis Consults: Orthopedics Diet: Regular diet. Tolerating po diet. Encourage good po intake with each meal. Pulmonary: Encourage good pulmonary toileting. IS at bedside and pt encouraged to use. Rationale for use explained to patient, and verbalized understanding. PAIN Management: [place] po. Morphine IV for breakthrough pain. Flexeril po. Added meclizine as patient becomes dizzy. Activity: OOB. PT and OT ordered. (50% WB RLE; NWB LLE). Encourage ambulation and work with PT and OT. GI prophylaxis: Pepcid hs. Bowel regimen: Colace and MOM. Lactulose. LBM: 0 intensified with bisacodyl po/[place]. However patient did not receive the rectal suppository. DC Stinson catheter. DVT prophylaxis: Mechanical VTE with SCDs. Chemical management TBD DC Planning: Case management consulted for assistance with final discharge disposition. She can be discharged home as soon as she has been working with physical therapy, and her pain is controlled. Patient states she is too painful and dizzy to go home today. Plan for discharge tomorrow. Emotional support provided to patient and family at bedside and plan of care discussed. Discussed with RN at bedside . Patient is hemodynamically stable and being managed on the med/surg floor. Problem Qualifiers (1) Sacral fracture, closed: Qualified Code: S32.10XA - Closed fracture of sacrum, unspecified portion of sacrum, initial encounter (2) Multiple pelvic fractures: Qualified Code: S32.811A - Multiple closed fractures of pelvis with unstable disruption of pelvic northway, initial encounter Claire Byrne Jun 21, 2016 16:44
[2016-06-21] MEDS: MECLIZINE HCL 25 MG TAB PO PRN (17:10)
[2016-06-21] MEDS: MORPHINE SULFATE 4 MG/ML INJ IV PRN (19:34)
[2016-06-21] MEDS: FAMOTIDINE 20 MG TAB PO SCH (19:34)
[2016-06-22 00:35] VITALS: BP 142/73; PULSE 68; RESP 18; TEMP 98.5; O2SAT 94
[2016-06-22] MEDS: CYCLOBENZAPRINE HCL 10 MG TAB PO PRN ×3 (05:57→22:35)
[2016-06-22] MEDS: ACETAMINOPHEN/HYDROcodone 325 MG/7.5 MG TAB PO PRN ×2 (05:57→09:26)
[2016-06-22] MEDS: ENOXAPARIN SODIUM 40 MG/0.4 ML SYRINGE SQ SCH (06:59)
[2016-06-22 08:00] VITALS: BP 102/61; PULSE 73; RESP 16; TEMP 98.2; O2SAT 95
[2016-06-22] MEDS ORDERED: MAGNESIUM CITRATE SOLN 300 ML BTL PO ONE (09:00)
[2016-06-22] MEDS: LACTULOSE SYRUP 20 GM/30 ML CUP PO SCH (09:21)
[2016-06-22] MEDS: DOCUSATE SODIUM 100 MG CAP PO SCH (09:22)
[2016-06-22] MEDS: MECLIZINE HCL 25 MG TAB PO PRN (09:22)
[2016-06-22 10:04] VITALS: O2SAT 95
--- NOTE | 2016-06-22 10:09 | PD.ORT.PN ---
Subjective Subjective Remarks Pain controlled. Still having difficulty ambulating due to pain of pelvis Objective Vitals Vital Signs Date Time Temp Pulse Resp B/P Pulse Ox O2 Delivery O2 Flow Rate FiO2 06/22/16 10:04 95 21 06/22/16 08:00 98.2 73 16 102/61 95 06/22/16 07:14 Room Air 06/22/16 00:35 98.5 68 18 142/73 94 06/21/16 20:13 97.8 68 18 125/70 96 06/21/16 19:53 96 21 06/21/16 16:00 100.0 71 16 112/68 97 06/21/16 12:00 98.9 68 16 107/66 97 06/21/16 10:31 90 Nasal Cannula 1.00 I/O 06/21/16 06/21/16 06/21/16 06/22/16 06/22/16 06/22/16 07:00 15:00 23:00 07:00 15:00 23:00 Intake Total 880 ml 720 ml 360 ml Output Total 2700 ml 1075 ml Balance -1820 ml -355 ml 360 ml Intake Oral 880 ml 720 ml 360 ml Output Urine Total 2700 ml 1075 ml # Voids 2 # Bowel Movements 0 0 1 Result Diagram: 06/20/16 0616 06/20/16 0616 Imaging Last [address] 06/19/16 1448 Signed Impressions: Service Date/Time: Sunday, June 19, 2016 15:29 - CONCLUSION: No bleed or other acute intracranial abnormality. Pansinusitis. Marcus Barreto MD Cervical Spine CT 06/19/16 1448 Signed Impressions: Service Date/Time: Sunday, June 19, 2016 15:29 - CONCLUSION: Degenerative changes as above. No fracture or subluxation of the cervical spine. Marcus Barreto MD Lumbar Spine CT 06/19/16 1307 Signed Impressions: Service Date/Time: Sunday, June 19, 2016 13:37 - CONCLUSION: 1. Acute fracturing of the anterior right lateral aspect of the sacrum. 2. Mild disc bulges at the mid and lower lumbar spine at the L2-L3 through L4-L5 levels. There is a mild impression on the anterior left side of the thecal sac at the L4-L5 level. Marcus Gauthier MD Objective Remarks BUE: full motion. no pain. nvi BLE: full motion. pain in pelvis. NVI distlaly. no bruising Assessment & Plan Assessment and Plan 1) Right Sacral Fx and multiples pubic rami fxs - nonop -nonop -50%WB RLE -WBAT LLE Physical therapy to evaluate for home discharge versus rehabilitation -f/u Caden or NICOL in 2 weeks DOMENIC JOHNSON PA-C Jun 22, 2016 10:09
[2016-06-22 11:46] VITALS: BP 119/70; PULSE 71; RESP 16; TEMP 98.7; O2SAT 91
[2016-06-22] MEDS ORDERED: MECL-62 PO (13:32)
--- NOTE | 2016-06-22 14:40 | HHI.DS ---
Discharge Summary Admission Date Jun 19, 2016 at 14:56 Discharge Date: Jun 22, 2016 Admitting Diagnosis multiple pelvic fractures, closed sacral fracture (1) Sacral fracture, closed Diagnosis: Principal (2) Multiple pelvic fractures Diagnosis: Principal Brief History The patient was bucked off a horse. CBC/BMP: 06/20/16 0616 06/20/16 0616 Significant Findings Laboratory Tests Test 06/19/16 06/20/16 14:50 06:16 Urine Protein 30 mg/dL (NEG-TRACE) Urine Ketones 15 mg/dL (NEG) Red Blood Count 3.72 MIL/MM3 (4.00-5.30) Neutrophils (%) (Auto) 72.3 % (16.0-70.0) Monocytes (%) (Auto) 11.3 % (0.0-8.0) Monocytes # (Auto) 1.0 TH/MM3 (0-0.9) Estimat Glomerular Filtration 85 ML/MIN (>89) Rate Random Glucose 112 MG/DL (74-106) Calcium Level 7.7 MG/DL (8.5-10.1) Imaging Last Impressions Head CT 06/19/16 1448 Signed Impressions: Service Date/Time: Sunday, June 19, 2016 15:29 - CONCLUSION: No bleed or other acute intracranial abnormality. Pansinusitis. Marcus Barreto MD Cervical Spine CT 06/19/16 1448 Signed Impressions: Service Date/Time: Sunday, June 19, 2016 15:29 - CONCLUSION: Degenerative changes as above. No fracture or subluxation of the cervical spine. Marcus Barreto MD Lumbar Spine CT 06/19/16 1307 Signed Impressions: Service Date/Time: Sunday, June 19, 2016 13:37 - CONCLUSION: 1. Acute fracturing of the anterior right lateral aspect of the sacrum. 2. Mild disc bulges at the mid and lower lumbar spine at the L2-L3 through L4-L5 levels. There is a mild impression on the anterior left side of the thecal sac at the L4-L5 level. Marcus Gauthier MD Pelvis CT 06/19/16 0000 Signed Impressions: Service Date/Time: Sunday, June 19, 2016 13:37 - CONCLUSION: 1. Fracturing of the right side of the sacrum involving the S1 through S3 levels. 2. Fracturing of the inferior pubic rami bilaterally and the right superior pubic rami. A superior left pubic rami fracture is not clearly seen. However, an occult fracture involving this structure needs to be at least suspected, given the other fractures. 3. Soft tissue hematoma seen at the posterior right lateral lower pelvis from the trauma. Marcus Gauthier MD Femur X-Ray 06/19/16 0000 Signed Impressions: Service Date/Time: Sunday, June 19, 2016 14:01 - CONCLUSION: No acute disease. Marcus Gauthier MD PE at Discharge GENERAL: This is a 61-year-old female sitting in a recliner chair. SKIN: Warm and dry. HEAD: Atraumatic. Normocephalic. EYES: PERRLA ENT: No nasal bleeding or discharge. Mucous membranes pink and moist. NECK: Trachea midline. No JVD. CARDIOVASCULAR: Regular rate and rhythm. RESPIRATORY: No accessory muscle use. Lungs are clear to auscultation. Breath sounds equal bilaterally. No distress or dyspnea. GASTROINTESTINAL: BS + x 4 quads. Abdomen soft, non-tender, nondistended. MUSCULOSKELETAL: Extremities without cyanosis, or edema. + peripheral pulses x 4 extremities. Warm with good capillary refill and sensation. MAEW. NEUROLOGICAL: Awake and alert. Normal speech and pattern. Hospital Course [place]: This is a 61-year-old female who was bucked off horse. She landed on her right hip and buttocks. She states that she hit her head, but not lose consciousness. She originally complained of pain in the right buttocks that radiates down her leg. She was ambulatory at the scene. She was a transfer from [facility] INJURIES: Mild disk bulges at L2-L3 thru L4-L5 levels Fx of anterior RIGHT side of the sacrum (Involving S1-S3) BILATERAL inferior pubic rami fx RIGHT superior pubic rami fx Soft tissue hematoma - posterior RIGHT lower pelvis Consults: Orthopedics The patient is now tolerating a po diet. Eating and drinking well. Pain is being managed well with PO pain medications, and patient is being a provided with a script for pain meds upon discharge. (NO driving while taking narcotic pain medication enforced to patient.) Pt has been intensified in her bowel regimen, and we have recommended to the patient to continue with stool softeners while taking narcotic pain medications to prevent constipation. Patient has a history of dizziness, even before this accident, therefore she is being a provided a prescription for meclizine. Pt has been participating in PT and OT while admitted at [facility] and has been ambulating with their assistance and independently . Patient will continue with home health care PT once discharged. All follow up appointments have been provided and discussed with the patient. It is recommended that the patient keeps all his follow up appointments for continued recovery. Therefore, the patient is stable to be safely discharged home from a trauma surgery standpoint - she has a friend that lives with her who has agreed to assist in her care. Thank you for allowing us to participate in her care. We wish Brenda the best in her recovery. Pt Condition on Discharge: Stable Discharge Disposition: Disch w/ Home Health Serv Discharge Instructions DIET: Follow Instructions for: As Tolerated, No Restrictions Activities you can perform: Non Weight Bearing Activities to Avoid: Driving for 24 hrs, Lifting/Bending, Weight Bearing, Strenuous Activity Other Activity Instructions: 50% weight bearing right lower extremity non weight bearing left lower extremity Claire Byrne Jun 22, 2016 14:40
[2016-06-22 20:10] VITALS: BP 114/70; PULSE 74; RESP 18; TEMP 98.4; O2SAT 94
--- NOTE | 2016-07-08 17:40 | MH ---
cc: SUSAN RAMIREZ DATE OF ADMISSION 06/19/2016 ADMISSION DIAGNOSIS Fall from the horse HISTORY OF PRESENT ILLNESS A 61 year-old female was riding the horse which lost floating and she fell over the horse landing on the right hip. She was apparently wearing a helmet. Denies loss of consciousness. The patient laid on the ground and immediately felt pain radiating into the right buttock and down the right leg. The patient was brought as an ER admission. Evaluated the patient as far as the trauma is concerned. PAST MEDICAL HISTORY 1. Skin cancer, 2. Hypothyroidism. PAST SURGICAL HISTORY 1. Hysterectomy and salpingo-oophorectomy SOCIAL HISTORY The patient does not smoke and socially drinks. ALLERGIES No allergies. MEDICATIONS 1. Fosamax, 2. Mevacor 3. Proventil PHYSICAL EXAMINATION GENERAL: A 61-year-old female no acute distress. However in pain. HEENT: Normocephalic. No trauma to the head. Pupils equally reactive. Extraocular muscles intact. No hemotympanum. No raccoon's eyes. No Carter sign. NECK: Neck is examined by removing the C-collar. No signs of trauma to the neck. CHEST: Clear bilateral breath sounds. HEART: Regular rhythm. ABDOMEN: Soft. Active bowel sounds. No signs of trauma to the abdomen. BACK: The patient is lying on her side, right side up. The patient is able to flex her hip, however this elicits pain on the right side. No deformities are noted. The patient underwent CT imaging which revealed a nondisplaced pubic ramus and right sacral fracture. The patient was seen by orthopedics and further care per clinical indices. Kristopher ODELL/ /5:16 PM /5:25 PM
== END 2016-06-22 22:44 | disposition home or self-care (01) | DRG 536 ==
LOC: PHEFT 12:36 → PHEDA 14:56 → N06B 18:52
PROVIDERS: ADMIT Surgery; ATTEND Surgery
DX: S32.591A Other specified fracture of right pubis, initial encounter for closed fracture (principal); S32.10XA Unspecified fracture of sacrum, initial encounter for closed fracture; S32.592A Other specified fracture of left pubis, initial encounter for closed fracture; E07.9 Disorder of thyroid, unspecified; E78.00 Pure hypercholesterolemia, unspecified; J45.909 Unspecified asthma, uncomplicated; V80.010A Animal-rider injured by fall from or being thrown from horse in noncollision accident, initial encounter; Y93.52 Activity, horseback riding; Y92.9 Unspecified place or not applicable; M51.26 Other intervertebral disc displacement, lumbar region
CPT/HCPCS: 51702; 70450; 72125; 72131; 72192; 73551; 80048; 80053; 81001; 85025; 86850; 86900; 86901; 94150; 96372; J1650; J2270; J2360; J2405; J7030

== ENCOUNTER 2016-11-13 11:48 | Emergency (ER) | payer OTHER ==
[~2016-11-13] VITALS: Ht 170.2 cm; Wt 84.0 kg
[~2016-11-13 11:48] MED LIST changes: +DOCU1CAP39 PO; +HYDR-3288 PO; +MECL-62 PO; +MILKSUS PO; +MISC-163; +WALKER/ADULT/FO1 MIS; +XARE10TA PO
[2016-11-13 11:50] VITALS: BP 142/77; PULSE 68; RESP 16; TEMP 98.5; O2SAT 98
[2016-11-13] MEDS ORDERED: FLUTI44I INH (12:08)
[2016-11-13] MEDS ORDERED: LEVO.075 PO (12:08)
[2016-11-13] MEDS ORDERED: VENTAER INH (12:08)
--- NOTE | 2016-11-13 12:11 | PD ---
HPI Chief Complaint: Injury Time Seen by Provider: 12:04 Travel History International Travel<30 days: No Contact w/Intl Traveler<30days: No Traveled to known affect area: No History of Present Illness HPI 61-year-old female presents to the emergency department for evaluation of left foot injury that occurred this morning. Patient states she was going down the stairs and twisted her left foot. She was able to catch herself and did not fall or hit her head. She denies any LOC. No neck pain or back pain. No chest pain or abdominal pain. No nausea or vomiting. No hip or pelvic pain. Patient reports history of hypothyroidism and asthma. She denies taking anticoagulants or having bleeding disorders. Patient denies any other complaints at this time. Patient states she took Tylenol prior to arrival for pain. She states it is helping the pain. PFSH Past Medical History Asthma: Yes Cancer: Yes (NOSE TIP SKIN) Cardiovascular Problems: No High Cholesterol: Yes Diabetes: No Diminished Hearing: No Glaucoma: No Hepatitis: No Hiatal Hernia: No Hypertension: No Respiratory: Yes (ASTHMA) Thyroid Disease: Yes Menopausal: Yes : 4 Para: 3 : 1 Past Surgical History Gynecologic Surgery: Yes (LEEP) Social History Alcohol Use: Yes (2/DAY) Tobacco Use: No Substance Use: No Allergies-Medications (Allergen,Severity, Reaction): Coded Allergies: No Known Allergies (Verified , 11/13/16) Reported Meds & Prescriptions Reported Meds & Active Scripts Active Lortab (Hydrocodone-Acetaminophen) 5-325 Mg Tab 1 Tab PO Q6H PRN Reported Synthroid (Levothyroxine Sodium) 75 Mcg Tab 75 Mcg PO DAILY Flovent Hfa 10.6 GM Inh (Fluticasone Propionate) 44 Mcg/Act Inh 2 Puff INH DAILY Use daily at the same time. Ventolin Hfa 18 GM Inh (Albuterol Sulfate) 90 Mcg/Act Aer 2 Puff INH Q4-6H PRN Review of Systems Except as stated in HPI: all other systems reviewed are Neg Physical Exam Narrative GENERAL: Well-nourished, well-developed female patient, afebrile. SKIN: Focused skin assessment warm/dry. No lacerations or abrasions. HEAD: Normocephalic. Atraumatic. EYES: No scleral icterus. No injection or drainage. NECK: Supple, trachea midline. No JVD or lymphadenopathy. CARDIOVASCULAR: Regular rate and rhythm without murmurs, gallops, or rubs. Left pedal pulses 2+. Capillary refill is less than 2 seconds to the digits of the left foot. RESPIRATORY: Breath sounds equal bilaterally. No accessory muscle use. Lungs sounds are clear to auscultation. GASTROINTESTINAL: Abdomen soft, non-tender, nondistended. MUSCULOSKELETAL: No cyanosis. No obvious deformity. She has tenderness over left lateral foot and mild tenderness over left lateral ankle. Patient has full sensation distal aspect of the left lower extremity. BACK: Nontender without obvious deformity. No CVA tenderness. Data Data Last Documented VS Vital Signs Date Time Temp Pulse Resp B/P Pulse Ox O2 Delivery O2 Flow Rate FiO2 11/13/16 11:50 98.5 68 16 142/77 98 Orders Ketorolac Inj (Toradol Inj) (11/13/16 12:15) Foot, Complete ([id number]) (11/13/16 ) Ankle, Complete ([id number]) (11/13/16 ) Splint Or Brace Apply/Monitor (11/13/16 13:14) Crutches (11/13/16 13:14) MDM Medical Decision Making Medical Screen Exam Complete: Yes Emergency Medical Condition: Yes Medical Record Reviewed: Yes Differential Diagnosis Sprain versus contusion versus fracture Narrative Course 61 year old female presents to the emergency department for evaluation of left foot/ankle injury that occurred this morning. Patient is given Toradol 60 mg IM. X-ray of the left ankle/foot are ordered and pending. X-ray of the left foot [-]. X-ray of the left ankle [-]. Diagnosis Primary Impression: Avulsion fracture of talus Qualified Code: S92.152A - Closed displaced avulsion fracture of left talus, initial encounter Referrals: Client Account Representative call for appointment Patient Instructions: Foot Fracture in Adults (ED), General Instructions Additional Instructions: Wear splint. Use crutches [id number] Tylenol for [id number] pain. Lortab for moderate to severe pain. Caution this can make you drowsy so do not drive after taking. Follow-up with potato grader. Return to the emergency department for any acute worsening of symptoms. Med/Other Pt SpecificInfo: Prescription(s) given Scripts Hydrocodone-Acetaminophen (Lortab)5-325 Mg Tab1 Tab PO Q6H PRN (PAIN) #12 TAB Ref 0 Prov:Jc Santos MD 11/13/16 Disposition: 01 DISCHARGE HOME Condition: Stable Delmis Andrea Nov 13, 2016 12:11
[2016-11-13] MEDS ORDERED: KETOROLAC TROMETHAMINE 60 MG/2 ML (IM) VIAL IM ONE (12:15)
--- NOTE | 2016-11-13 13:00 | RADRPT ---
EXAM DATE/TIME: 11/13/2016 12:32 [facility] COMPARISON: No previous studies available for comparison. INDICATIONS : Right foot and ankle pain. MEDICAL HISTORY : Carcinoma, basal cell. Fracture, pelvis. SURGICAL HISTORY : Nasal bone reconstruction. ENCOUNTER: Initial ACUITY: 1 day PAIN SCORE: 5/10 LOCATION: Right foot. FINDINGS: Three view exam was performed of the left ankle. The bony structures are in normal alignment. No ev idence of fracture, dislocation, or soft tissue swelling. The ankle mortise is intact. No radiopaqu e foreign bodies are seen. Bony mineralization is normal. CONCLUSION: Intact left ankle. Marcus Barreto MD on November 13, 2016 at 12:58 Board Certified Radiologist. This report was verified electronically.
--- NOTE | 2016-11-13 13:02 | RADRPT ---
EXAM DATE/TIME: 11/13/2016 12:31 [facility] COMPARISON: No previous studies available for comparison. INDICATIONS : Left foot and ankle pain. MEDICAL HISTORY : Carcinoma, basal cell. Fracture, pelvis. SURGICAL HISTORY : Nasal bone reconstruction. ENCOUNTER: Initial ACUITY: 1 day PAIN SCORE: 5/10 LOCATION: Left foot. FINDINGS: Sliver-like increased density seen dorsal to the distal talus and potentially representing a small av ulsion fracture fragment, age indeterminate. Please correlate clinically for focal pain/tenderness to palpation here. Otherwise, the bones of the left foot are intact. There are no subluxations. Mild degenerative change s are seen of the sesamoids. CONCLUSION: Possible minimally displaced avulsion fracture dorsally of the distal talus as above. Otherwise intac t left foot. Mild degenerative changes of the sesamoids. Marcus Barreto MD on November 13, 2016 at 12:59 Board Certified Radiologist. This report was verified electronically.
[2016-11-13] MEDS ORDERED: HYDR-3533 PO (13:13)
== END 2016-11-13 13:42 | disposition home or self-care (01) ==
LOC: PHED 11:48
DX: S92.152A Displaced avulsion fracture (chip fracture) of left talus, initial encounter for closed fracture (principal); X50.1XXA Overexertion from prolonged static or awkward postures, initial encounter
CPT/HCPCS: 73610; 73630; 96372; 99284; E0113; J1885